=== PATIENT | female | born 1955 | race Caucasian/White ===

== ENCOUNTER 2019-03-19 09:45 | Inpatient (IN) | payer MEDICARE ==
[~2019-03-19] VITALS: Ht 175.3 cm; Wt 75.0 kg
[2019-03-19 09:48] VITALS: Ht 175.3 cm; Wt 75.0 kg
[2019-03-19] MEDS ORDERED: NORVASC10 MG PO (09:50)
[2019-03-19] MEDS ORDERED: TENORMIN25 MG PO (09:50)
[2019-03-19] MEDS ORDERED: VITAMIN D31000 UNIT PO (09:51)
[2019-03-19] MEDS ORDERED: ZYRTEC10 MG PO (09:51)
[2019-03-19] MEDS ORDERED: IBUPROFEN800 MG PO (09:52)
[2019-03-19] MEDS ORDERED: XOPENEX HFA15 GM INH (09:52)
[2019-03-19] MEDS ORDERED: CYCLOBENZAPRINE10 MG PO (09:52)
[2019-03-19] MEDS ORDERED: LIDODERM 5 %1 PATCH TRANSDERM (09:53)
[2019-03-19] MEDS ORDERED: OMEPRAZOLE20 M1 PO (09:53)
[2019-03-19] MEDS ORDERED: PRAVACHOL20 MG PO (09:53)
[2019-03-19] MEDS ORDERED: SUMATRIPTAN SUC25 MG PO (09:54)
[2019-03-19 10:06] LABS: BASOPHILS 0.1 % (0-2); EOSINOPHILS 0.1 % (0-7); HEMATOCRIT 39.7 % (36.0-48.0); HEMOGLOBIN 13.6 g/dL (12-16); IMMATURE GRANULOCYTES 0.2 % (0-5); LYMPHOCYTES 13.2 % (15-50); MCH 34.3 pg (26.0-34.0); MCHC 34.3 g/dL (31.0-37.0); MEAN PLATELET VOLUME 10.3 fL (7.4-10.4); MONOCYTES 7.4 % (2-11); PLATELET COUNT 251 10x3/uL (130-400); RBC 3.97 10x6/uL (4.00-5.40); RDW 13.4 % (11.5-14.5); WBC 10.8 10x3/uL (4.8-10.8)
[2019-03-19 10:18] LABS: APTT 30.5 SECONDS (22.8-39.4); INR 0.97 (0.85-1.17); PROTIME 12.9 SECONDS (11.6-15.0)
[2019-03-19 10:20] LABS: CALC OSMOLALITY 270 mosm/kg (275-300); CALCIUM 8.6 mg/dL (8.5-10.1); CARBON DIOXIDE 26.1 mmol/L (21.0-32.0); CHLORIDE - SERUM 102 mmol/L (98-107); CREATININE - SERUM 0.9 mg/dL (0.6-1.3); GLUCOSE 93 mg/dL (74-106); POTASSIUM - SERUM 4.1 mmol/L (3.5-5.1); SODIUM 136 mmol/L (136-145); UREA NITROGEN 10 mg/dL (7-18); eGFR NON AFRICAN AMERICAN 67 mL/min (90-120)
[2019-03-19 10:41] LABS: ALBUMIN 3.4 g/dL (3.4-5.0); ALKALINE PHOSPHATASE 108 U/L (46-116); ALT (SGPT) 38 U/L (10-68); BILIRUBIN - TOTAL 0.33 mg/dL (0.2-1.3); CKMB 1.8 U/L (0.0-3.6); CREATINE KINASE 34 UL (21-215); PRO BNP 148 pg/mL (0-125); PROTEIN - SERUM 7.6 g/dL (6.4-8.2); TROPONIN-I < 0.017 ng/mL (0.000-0.060)
--- NOTE | 2019-03-19 12:18 | NUR ---
PT HAVING A COUGHING SPELL SHE STATES, RESP. TX AT THIS TIME.
--- NOTE | 2019-03-19 12:56 | NUR ---
UP TO RESTROOM AT THIS TIME.
--- NOTE | 2019-03-19 13:00 | NUR ---
PT WALKED TO RESTROOM ON HER OWN WITHOUT ALERTING STAFF, HAS BECOME VERY SHORT OF BREATH WITH LABORED BREATHING ON RETURN TO ROOM. PLACED BACK ON O2 AND ENCOURAGED TO BREATHE SLOWLY IN AND OUT OF NOSE.
--- NOTE | 2019-03-19 13:05 | NUR ---
PT IS BREATHING MUCH EASIER NOW, O2 SAT 92 ON 3 L O2, INSTRUCTED TO ALERT STAFF FOR ASSISTANCE IN THE FUTURE.
[2019-03-19 13:29] VITALS: BP 131/79
--- NOTE | 2019-03-19 13:52 | NUR ---
RECEIVED PT FROM ER. PT IS AAO AND UP AD KARRIE. RR EVEN AND LABORED ON EXERTION ON 3L O2. PIV SALINE LOCKED. QUICKSTART, HISTORY, AND MED REQ COMPLETE. PT DENIES ANY NEEDS AT THIS TIME. WILL CTM.
[2019-03-19 20:00] VITALS: BP 124/82
--- NOTE | 2019-03-19 21:00 | NUR ---
PT RESTING IN BED WITH EYES CLOSED. NO SIGNS OR SYMPTOMS OF DISTRESS NOTED. RESPIRATIONS ARE ENEN AND UNLABORED. 3L NASAL CANULA. RESEVE lEFT ARM. LEFT AC IV. OT IS ALERT AND ORIENTED. UP AID KARRIE. CONTINENT OF BOWELL AND BLADDER. BOWELL SOUNDS ARE ACTIVE X4. PT STATES THAT LAST BOWELL MOVEMENT WAS 03/19/2019. ABDOMEN IS SOFT TO PALPATION. NO COMPLAINTS OF PAIN AT THIS TIME. MEDICATION GIVEN AND PT TOLERATED WELL. UP AID KARRIE. PT STATES THAT SHE GETS SHORT OF BREATH WHEN WALKING LONG DISTANCE. PT ENCOURAGE TO CALL FOR HELP WHEN GETTING IN AND OUT OF BED. BED IN LOWEST POSITION AND CALL LIGHT IS WITHIN REACH. WILL CONTINUE TO MONITOR.
--- NOTE | 2019-03-19 21:24 | NUR ---
PT LYING IN BED AWAKE ALERT AND ORIENTED. NO COMPLAINTS OF PAIN AT THIS TIME.
[2019-03-20] VITALS: BP 127/76
[2019-03-20 04:00] VITALS: BP 124/70
[2019-03-20 06:03] LABS: BASOPHILS 0 % (0-2); EOSINOPHILS 0 % (0-7); HEMATOCRIT 34.5 % (36.0-48.0); HEMOGLOBIN 11.6 g/dL (12-16); IMMATURE GRANULOCYTES 0.4 % (0-5); LYMPHOCYTES 8.2 % (15-50); MCH 33.4 pg (26.0-34.0); MCHC 33.6 g/dL (31.0-37.0); MCV 99.4 fL (80.0-100.0); MEAN PLATELET VOLUME 10.1 fL (7.4-10.4); MONOCYTES 1.4 % (2-11); PLATELET COUNT 231 10x3/uL (130-400); RBC 3.47 10x6/uL (4.00-5.40); RDW 13.5 % (11.5-14.5)
[2019-03-20 06:48] LABS: CALC OSMOLALITY 280 mosm/kg (275-300); CALCIUM 8.5 mg/dL (8.5-10.1); CARBON DIOXIDE 19.8 mmol/L (21.0-32.0); CHLORIDE - SERUM 106 mmol/L (98-107); CREATININE - SERUM 0.8 mg/dL (0.6-1.3); MAGNESIUM - SERUM 1.9 mg/dL (1.8-2.4); POTASSIUM - SERUM 3.5 mmol/L (3.5-5.1); PRO BNP 571 pg/mL (0-125); SODIUM 139 mmol/L (136-145); T4 THYROXIN - FREE 1.02 ng/dL (0.76-1.46); UREA NITROGEN 11 mg/dL (7-18); eGFR NON AFRICAN AMERICAN 77 mL/min (90-120)
[2019-03-20 06:50] LABS: GLUCOSE 163 mg/dL (74-106)
--- NOTE | 2019-03-20 07:08 | NUR ---
I have reviewed this patient and I concur with the Shift Assessment completed by the Licensed Practical Nurse today this shift.
--- NOTE | 2019-03-20 07:27 | NUR ---
PT AWAKE AND ORIENTED, LYING IN BED WATCHING TELIVISION. NO COMPLAINTS OR CONCERNS AT THIS TIME. NO FAMILY AT BEDSIDE. ALL QUESTIONS ANSWERED TO THE BEST OF MY ABILITY. CL IN REACH, SRX2.
[2019-03-20 08:53] VITALS: BP 127/67
[2019-03-20 09:49] LABS: % SATURATION 12 % (15-55); IRON 25 ug/dl (35-150); TOTAL IRON BIND CAPACITY 203 ug/dl (260-445); UNSAT IRON BIND CAPACITY 178 ug/dl (150-375)
[2019-03-20 12:09] VITALS: BP 126/75
--- NOTE | 2019-03-20 15:00 | NUR ---
I have reviewed this patient and I concur with the Shift Assessment completed by the Licensed Practical Nurse today this shift.
[2019-03-20 16:52] VITALS: BP 119/74
--- NOTE | 2019-03-20 17:18 | NUR ---
PT AWAKE AND ORIENTED, STATES SHE'S GLAD TO BE FEELING A LITTLE BETTER AND THE COUGH MEDICINE IS HELPING EXPONETIALLY. CL IN REACH, SRX2.
[2019-03-20 20:00] VITALS: BP 109/66
--- NOTE | 2019-03-20 20:10 | NUR ---
RECEIVED UP IN BED WITH EYES OPEN AND TV ON. STATED SHE HAD JUST TAKEN A SHOWER. ALERT AND ORIENTED X4. BECOMES SOB WITH EXCERTION. LUNG SOUNDS DIMINISHED. ABSX4. O2 AT 3.5 LITERS PER N/C. IV TO LEFT AC SL. DENIES ANY NEEDS AT THIS TIME.
[2019-03-21] VITALS (7 sets, daily range): BP systolic 110–134; BP diastolic 56–75
[2019-03-21 03:37] LABS: APPEARANCE CLEAR (CLEAR); BILIRUBIN NEGATIVE (NEGATIVE); COLOR YELLOW (YELLOW); GLUCOSE NEGATIVE (NEGATIVE); KETONE NEGATIVE (NEGATIVE); NITRITE NEGATIVE (NEGATIVE); PROTEIN NEGATIVE (NEGATIVE); UROBILINOGEN NORMAL (NORMAL)
[2019-03-21 06:48] LABS: BASOPHILS 0 % (0-2); EOSINOPHILS 0 % (0-7); HEMATOCRIT 31.7 % (36.0-48.0); HEMOGLOBIN 10.3 g/dL (12-16); IMMATURE GRANULOCYTES 0.6 % (0-5); MCH 32.4 pg (26.0-34.0); MCHC 32.5 g/dL (31.0-37.0); MCV 99.7 fL (80.0-100.0); MEAN PLATELET VOLUME 9.8 fL (7.4-10.4); MONOCYTES 2.4 % (2-11); PLATELET COUNT 239 10x3/uL (130-400); RBC 3.18 10x6/uL (4.00-5.40); RDW 13.3 % (11.5-14.5)
--- NOTE | 2019-03-21 07:15 | NUR ---
PT RESTING PEACEFULLY, LYING ON BACK IN BED. NO FAMILY PRESENT AT BEDSIDE. BREATHS EVEN/REGULAR UNLABORED, NOS IGNS OR SYMTPOMS OF ACUTE DISTRESS NOTED AT THIS TIME.
[2019-03-21 07:19] LABS: CALC OSMOLALITY 282 mosm/kg (275-300); CALCIUM 7.7 mg/dL (8.5-10.1); CHLORIDE - SERUM 110 mmol/L (98-107); CREATININE - SERUM 0.8 mg/dL (0.6-1.3); GLUCOSE 130 mg/dL (74-106); POTASSIUM - SERUM 3.4 mmol/L (3.5-5.1); SODIUM 141 mmol/L (136-145); UREA NITROGEN 13 mg/dL (7-18); eGFR NON AFRICAN AMERICAN 77 mL/min (90-120)
--- NOTE | 2019-03-21 09:46 | NUR ---
I have reviewed this patient and I concur with the Shift Assessment completed by the Licensed Practical Nurse today this shift.
--- NOTE | 2019-03-21 17:00 | NUR ---
PT AWAKE AND ORIENTED, LYING IN BED EATING SUPPER. NO CMPLAINTS OR CONCERNS, IN PLESANT MOOD. EXPECTING TO GO HOME IN THE MORNING. ALL QUESTIONS NASWERED TO THE BEST OF MY ABILITY. CL IN REACH, SRX2.
--- NOTE | 2019-03-21 18:07 | NUR ---
RESITED I/V TO RIGHT UPPER ARM 20G ONE STICK
--- NOTE | 2019-03-21 19:15 | NUR ---
RECEIVED UP IN BED WITH EYES OPEN AND TV ON. ALERT AND ORIENTED X4. IV TO LEFT UPPER ARM WITH NS AT 75CC/HR. DSG CDI WITH NO REDNESS OR EDEMA OBSERVED. DENIES ANY NEEDS AT THIS TIME.
[2019-03-22 04:39] VITALS: BP 128/70
[2019-03-22 05:29] LABS: BASOPHILS 0.1 % (0-2); EOSINOPHILS 0 % (0-7); HEMATOCRIT 33.9 % (36.0-48.0); HEMOGLOBIN 11.1 g/dL (12-16); IMMATURE GRANULOCYTES 0.8 % (0-5); LYMPHOCYTES 9.2 % (15-50); MCH 32.9 pg (26.0-34.0); MCHC 32.7 g/dL (31.0-37.0); MCV 100.6 fL (80.0-100.0); MEAN PLATELET VOLUME 9.7 fL (7.4-10.4); MONOCYTES 3.3 % (2-11); NEUTROPHILS 86.6 % (40-80); PLATELET COUNT 271 10x3/uL (130-400); RBC 3.37 10x6/uL (4.00-5.40); RDW 13.4 % (11.5-14.5); WBC 7.8 10x3/uL (4.8-10.8)
[2019-03-22 05:30] LABS: CALC OSMOLALITY 280 mosm/kg (275-300); CALCIUM 7.9 mg/dL (8.5-10.1); CARBON DIOXIDE 23.3 mmol/L (21.0-32.0); CHLORIDE - SERUM 108 mmol/L (98-107); CREATININE - SERUM 0.8 mg/dL (0.6-1.3); GLUCOSE 118 mg/dL (74-106); POTASSIUM - SERUM 3.6 mmol/L (3.5-5.1); SODIUM 140 mmol/L (136-145); UREA NITROGEN 15 mg/dL (7-18); eGFR NON AFRICAN AMERICAN 77 mL/min (90-120)
--- NOTE | 2019-03-22 08:40 | NUR ---
REPORT RECIEVED. PT SITTING UP IN BED. RR EVEN AND UNLABORED. SHE HAS A L UPPER ARM PIV INFUSING NS @ 75. SHE IS A RESERVE L ARM. BED LOCKED AND IN LOWEST POSITION, CALL LIGHT WITHIN REACH. WILL CTM
[2019-03-22 08:43] VITALS: BP 136/85
[2019-03-22 12:29] VITALS: BP 133/78
--- NOTE | 2019-03-22 14:40 | NUR ---
PATIENT NON AMBULATING ROOM AIR SP02 88%. PATIENT AMBULATED IN HALLWAY WITH RT, ROOM AIR AMBULATING SP02 86%. RT PLACED 1L NC ON PATIENT, AMBULATING SP02 ON 1L WAS 88%. 02 INCREASED TO 2LNC AND AMBULATING SP02 91%.
[2019-03-22] MEDS ORDERED: PREDNISONE10 MG PO (15:17)
[2019-03-22] MEDS ORDERED: LEVOFLOXACIN500 MG PO (15:17)
--- NOTE | 2019-03-22 15:54 | NUR ---
I have reviewed this patient and I concur with the Shift Assessment completed by the Licensed Practical Nurse today this shift.
--- NOTE | 2019-03-22 16:22 | MORECARE ---
CASE MANAGEMENT DISCHARGE SUMMARY PATIENT: ROSALIA NORIEGA UNIT: [id number] ADM DATE: 03/19/19 AGE: 63 : 55 SEX: F ROOM/BED: D.2137 AUTHOR: JAYA ALEXANDER PHYSICIAN: REFERRING PHYSICIAN: REBECA DE GUZMAN MD DATE OF SERVICE: 03/22/19 Discharge Plan Patient Name: ROSALIA NORIEGA [facility] [facility] 1955 Planned Disposition: Home Anticipated Discharge Date: 03/22/19 Discharge Date: Expected LOS: 3 Initial Reviewer: [email or web address] Initial Review Date: 03/22/2019 Generated: 03/22/19 5:21 pm External Providers External Provider: OTHER-OTHER Next Contact Date: 03/22/2019 Service Request Date: Service Type: Resolution: Reviewer: Comments: Coverage Notice Reviewer: [email or web address] Atkinson Notice Issued Date-Time: 03/22/2019 14:15 Notice Type: Patient Choice Letter Notice Delivered To: Patient Relationship to Patient: Stone Setter Metal Optical Frames Name: Delivery Method: HAND - Hand Delivered Jennifer Days: Prior Verbal Notification: Recipient Understood Notice: Yes Recipient Signature: Yes Med Rec Note Co-signed by Attending: Coverage Notice Comment: [facility] OR [facility] EQUIPMENT PROVIDER Reviewer: [id number] Atkinson Notice Issued Date-Time: 03/22/2019 14:15 Notice Type: IM Discharge Notice Notice Delivered To: Patient Relationship to Patient: Stone Setter [employer] Optical Frames Name: Delivery Method: HAND - Hand Delivered Jennifer Days: Prior Verbal Notification: Recipient Understood Notice: Yes Recipient Signature: Yes Med Rec Note Co-signed by Attending: Coverage Notice Comment: Patient Name: ROSALIA NORIEGA Page [id number] at 1622 All edits/amendments must be made on the electronic document DICTATION DATE: 03/22/191620 FLORICULTURE TEACHER: ANJANA 03/22/191620 RPT#: [id number] DC DATE: STATUS: ADM IN [facility] [address] [place] [address] END OF REPORT
--- NOTE | 2019-03-22 16:30 | MORECARE ---
CASE MANAGEMENT DISCHARGE SUMMARY PATIENT: ROSALIA NORIEGA UNIT: [id number] ADM DATE: 03/19/19 AGE: 63 : 55 SEX: F ROOM/BED: D.6421 AUTHOR: BENJAMIN,DOC PHYSICIAN: REFERRING PHYSICIAN: REBECA DE GUZMAN MD DATE OF SERVICE: 03/22/19 Discharge Plan Patient Name: ROSALIA NORIEGA Facility: [facility]:[place] : 1955 Planned Disposition: Home Anticipated Discharge Date: 03/22/19 Discharge Date: Expected LOS: 3 Initial Reviewer: [email or web address] Initial Review Date: 03/22/2019 Generated: 03/22/19 5:29 pm DCPIA - Discharge Planning Initial Assessment Updated by [email or web address]: Taj Atkinson on 03/22/19 4:23 pm * Is the patient Alert and Oriented? Yes * How many steps to enter\exit or inside your home? * PCP DR. CAPPS, [facility] * Pharmacy [facility] [address] * Preadmission Environment Home Alone * ADLs Independent * Equipment Cane Nebulizer Oxygen * Other Equipment [facility] * List name and contact numbers for known caregivers / representatives who currently or will assist patient after discharge: KATHY MILLANON, FRIEND, * Verbal permission to speak to the caregivers and representatives has been obtained from the patient. N/A * Community resources currently utilized None * Please name any agencies selected above. NONE * Additional services required to return to the preadmission environment? No * Can the patient safely return to the preadmission environment? Yes * Has this patient been hospitalized within the prior 30 days at any hospital? No Coverage Notice Reviewer: [id number] Tabitha Atkinson Notice Issued Date-Time: 03/22/2019 14:15 Notice Type: Patient Choice Letter Notice Delivered To: Patient Relationship to Patient: Uc Architect Name: Delivery Method: HAND - Hand Delivered Jennifer Days: Prior Verbal Notification: Recipient Understood Notice: Yes Recipient Signature: Yes Med Rec Note Co-signed by Attending: Coverage Notice Comment: [facility] OR ANY MEDICAL EQUIPMENT PROVIDER Reviewer: [id number] Tabitha Atkinson Notice Issued Date-Time: 03/22/2019 14:15 Notice Type: IM Discharge Notice Notice Delivered To: Patient Relationship to Patient: Uc Architect Name: Delivery Method: HAND - Hand Delivered Jennifer Days: Prior Verbal Notification: Recipient Understood Notice: Yes Recipient Signature: Yes Med Rec Note Co-signed by Attending: Coverage Notice Comment: Last DP export: 03/22/19 3:22 p Patient Name: ROSALIA NORIEGA Page [phone] at 1630 All edits/amendments must be made on the electronic document DICTATION DATE: 03/22/191628 MAIL TELLER: ANJANA 03/22/191628 RPT#: [id number] DC DATE: STATUS: ADM IN [facility] [address] [place] [address] END OF REPORT
--- NOTE | 2019-03-22 16:34 | NUR ---
DC PAPERWORK GONE OVER AND SIGNED WITH PT. ALL QUESTIONS ANSWERED. PIV REMOVED,CATH TIP FULLY INTACT. ALL VALUBLES REMOVED FROM ROOM. PT TAKIN DOWNSTAIRS VIA WHEELCHAIR.
--- NOTE | 2019-03-22 16:38 | MORECARE ---
CASE MANAGEMENT DISCHARGE SUMMARY PATIENT: ROSALIA NORIEGA UNIT: [id number] ADM DATE: 03/19/19 AGE: 63 : 55 SEX: F ROOM/BED: D.1700 AUTHOR: BENJAMIN,DOC PHYSICIAN: REFERRING PHYSICIAN: REBECA DE GUZMAN MD DATE OF SERVICE: 03/22/19 Discharge Plan Patient Name: ROSALIA NORIEGA Facility[facility]:[place] : 1955 Planned Disposition: Home Anticipated Discharge Date: 03/22/19 Discharge Date: 03/22/2019 Expected LOS: 3 Initial Reviewer: [id number] Initial Review Date: 03/22/2019 Generated: 03/22/19 5:37 pm Comments DCP- Discharge Planning Updated by [email or web address]: Taj Atkinson on 03/22/19 3:[address] Patient Name: ROSALIA NORIEGA Admission Status: ER Accout number: [id number] Admission Date: 03-19-2019 : 1955 Admission Diagnosis: Attending: REBECA DE GUZMAN Current LOS: 3 Anticipated DC Date: 03-22-2019 Planned Disposition: Home Primary Insurance: MEDICARE A & B Discharge Planning Comments: CM MET WITH PT IN ROOM TO DISCUSS DISCHARGE PLANNING AND NEEDS. PT REPORTS LIVING AT HOME INDEPENDENTLY AND ALONE. PT HAS CANE, NEBULIZER AND HOME OXYGEN FROM [facility]. PT HAS NO OUTSIDE SERVICES ASSISTING IN THE HOME. CM DISCUSSED AVAILABILITY OF HOME HEALTH, REHAB SERVICES AND MEDICAL EQUIPMENT. PT DENIES DISCHARGE NEEDS, REPORTS HER FRIEND WILL PICK HER UP FOR DISCHARGE HOME. IMPORTANT MESSAGE FROM MEDICARE PROVIDED AND EXPLAINED. PT STATES IF SHE NEEDS OXYGEN, GET IT FROM [facility] OR ANY COMPANY THAT ACCEPTS MEDICARE. CHOICE SIGNED. CM RECEIVED OXYGEN TESTING, PT 88% ON ROOM AIR. CM CALLED [employer], , SPOKE TO NAHUN WHO INFORMED CM THAT THEY ARE NOT ABLE TO BILL MEDICARE PT HAS HOME OXYGEN FROM ANOTHER PROVIDER THROUGH [facility]. CM CALLED [facility], THEY ARE CLOSED DUE TO HOLIDAY. CM FAXED OXYGEN INFORMATION WELL DISCHARGE SUMMARY TO [facility] AT [phone]. CM CALLED [facility] AT [phone], SPOKE TO ROSALES WHO INFORMED CM THAT SHE DID NOT EVEN KNOW WHO TO CALL. ROSALES WILL TRY TO GET A [facility] GLAZE SPRAYER TO CALL CM. CM RECEIVED CALL FROM AMANDA JENKINS, GLAZE SPRAYER FOR [facility] WHO INFORMED CM THAT THIS SHOULD HAVE BEEN ARRANGED DAYS AHEAD OF TIME AND TODAY IS A HOLIDAY AND HE DOES NOT KNOW WHO SETS UP OXYGEN FOR [facility]. AMANDA WILL ATTEMPT TO FIND OUT AND CALL CM SHORTLY. CM RECEIVED CALL FROM AMANDA WHO PROVIDED NUMBER TO [facility] [place], ANNE SIMON: [phone]. CM CALLED ANNE WHO STATED THAT IT CANNOT BE DONE TODAY [facility], THE PROVIDER FOR [facility], DOES NOT DELIVER PAST 3PM, IT IS IN THEIR CONTRACT. ANNE STATES HE WOULD HAVE TO REVIEW THE PAPERWORK TO APPROVE IT AND IT WOULD BE TOMORROW AT THE EARLIEST TO GET PORTABLE TO GET PT HOME. CM PROVIDED PT INFORMATION TO ANNE. ANNE STATES THAT HE IS SURE THE HOSPITAL HAS OXYGEN TO LOAN TO PT TO GET HER HOME AND SHE CAN STAY HOME UNTIL THIS IS TAKEN CARE OF BY THE [facility] TOMORROW. CM SPOKE TO PHYSICAL THERAPY SUPERVISOR WHO DIRECTED CM TO [employer]. CM CALLED [facility] [employer] [facility] AND DISCUSSED ISSUE. PORT[facility] CHECKED INTO THE MATTER AND CALLED CM TO INFORM THAT THE HOSPITAL DOES NOT LOAN OXYGEN BOTTLES. CM NOTIFIED PT WHO REFUSED TO STAY. PT PROVIDED CM WITH WRITTEN STATEMENT " RELEASING THE HOSPITAL FROM ANY REPERCUSSIONS BY MY LEAVING." PT'S FRIEND HERE TO TRANSPORT PT HOME, PT STATES CM HAS TWO MINUTES TO GET HER DISCHARGE PAPERS OR SHE IS LEAVING WITHOUT THEM. CM NOTIFED DISPLAY MANAGER NURSE. Car Lot Attendant: Taj Atkinson DCPIA - Discharge Planning Initial Assessment Updated by [id number]: Taj Atkinson on 03/22/19 4:23 pm * Is the patient Alert and Oriented? Yes * How many steps to enter\\exit or inside your home? * PCP DR. CAPPS, [facility] * Pharmacy [facility] [address] [place] [address] * Preadmission Environment Home Alone * ADLs Independent * Equipment Cane Nebulizer Oxygen * Other Equipment [facility] * List name and contact numbers for known caregivers / representatives who currently or will assist patient after discharge: KATHY MEDINA, FRIEND, * Verbal permission to speak to the caregivers and representatives has been obtained from the patient. N/A * Community resources currently utilized None * Please name any agencies selected above. NONE * Additional services required to return to the preadmission environment? No * Can the patient safely return to the preadmission environment? Yes * Has this patient been hospitalized within the prior 30 days at any hospital? No Coverage Notice Reviewer: [id number] Tabitha Atkinson Notice Issued Date-Time: 03/22/2019 14:15 Notice Type: Patient Choice Letter Notice Delivered To: Patient Relationship to Patient: Cottage Master Name: Delivery Method: HAND - Hand Delivered Jennifer Days: Prior Verbal Notification: Recipient Understood Notice: Yes Recipient Signature: Yes Med Rec Note Co-signed by Attending: Coverage Notice Comment: [facility] OR [facility] MEDICAL EQUIPMENT PROVIDER Reviewer: [email or web address] Tabitha Atkinson Notice Issued Date-Time: 03/22/2019 14:15 Notice Type: IM Discharge Notice Notice Delivered To: Patient Relationship to Patient: Cottage Master Name: Delivery Method: HAND - Hand Delivered Jennifer Days: Prior Verbal Notification: Recipient Understood Notice: Yes Recipient Signature: Yes Med Rec Note Co-signed by Attending: Coverage Notice Comment: Last DP export: 03/22/19 3:30 p Patient Name: ROSALIA NORIEGA Page [phone] at 1638 All edits/amendments must be made on the electronic document DICTATION DATE: 03/22/191636 MOTION GRAPHICS DESIGNER: ANJANA 03/22/19 163 RPT#: [id number] DC DATE:03/22/19 STATUS: DIS IN [facility] [address] [place] [address] END OF REPORT
[2019-03-23 12:09] LABS: THYROGLOBULIN ANTIBODY QNS IU/mL (()); THYROID PEROXIDASE ABS 19 IU/mL (0-34)
== END 2019-03-22 16:36 | disposition home or self-care (01) | DRG 190 ==
LOC: D.ER 09:45 → D.M2 12:35
PROVIDERS: Emergency Medicine; ADMIT Internal Medicine Nephrology; ATTEND Internal Medicine Nephrology
DX: J44.0 Chronic obstructive pulmonary disease with (acute) lower respiratory infection (principal); J96.01 Acute respiratory failure with hypoxia; J20.9 Acute bronchitis, unspecified; J44.1 Chronic obstructive pulmonary disease with (acute) exacerbation; E03.9 Hypothyroidism, unspecified; I10 Essential (primary) hypertension; E78.5 Hyperlipidemia, unspecified; K21.9 Gastro-esophageal reflux disease without esophagitis; F41.8 Other specified anxiety disorders; F17.210 Nicotine dependence, cigarettes, uncomplicated; D64.9 Anemia, unspecified; Z85.3 Personal history of malignant neoplasm of breast; Z85.43 Personal history of malignant neoplasm of ovary

== ENCOUNTER 2019-08-14 09:07 | Emergency (ER) | payer MEDICARE ==
[~2019-08-14] VITALS: Ht 175.3 cm; Wt 76.4 kg
[~2019-08-14 09:07] MED LIST: CYCLOBENZAPRINE10 MG PO; IBUPROFEN800 MG PO; LEVOFLOXACIN500 MG PO; LIDODERM 5 %1 PATCH TRANSDERM; NORVASC10 MG PO; OMEPRAZOLE20 M1 PO; PRAVACHOL20 MG PO; PREDNISONE10 MG PO; SUMATRIPTAN SUC25 MG PO; TENORMIN25 MG PO; VITAMIN D31000 UNIT PO; XOPENEX HFA15 GM INH; ZYRTEC10 MG PO
[2019-08-14 09:17] VITALS: Ht 175.3 cm; Wt 76.4 kg
[2019-08-14 09:53] LABS: BASOPHILS 0.5 % (0-2); EOSINOPHILS 1.3 % (0-7); HEMATOCRIT 41.8 % (36.0-48.0); HEMOGLOBIN 13.9 g/dL (12-16); IMMATURE GRANULOCYTES 0.2 % (0-5); LYMPHOCYTES 35.3 % (15-50); MCH 33.7 pg (26.0-34.0); MCHC 33.3 g/dL (31.0-37.0); MCV 101.5 fL (80.0-100.0); MEAN PLATELET VOLUME 9.7 fL (7.4-10.4); MONOCYTES 6.3 % (2-11); NEUTROPHILS 56.4 % (40-80); RBC 4.12 10x6/uL (4.00-5.40); RDW 14.6 % (11.5-14.5)
[2019-08-14 10:02] LABS: CALC OSMOLALITY 269 mosm/kg (275-300); CALCIUM 8.2 mg/dL (8.5-10.1); CARBON DIOXIDE 25.5 mmol/L (21.0-32.0); CHLORIDE - SERUM 101 mmol/L (98-107); CREATININE - SERUM 1.1 mg/dL (0.6-1.3); GLUCOSE 98 mg/dL (74-106); POTASSIUM - SERUM 3.5 mmol/L (3.5-5.1); SODIUM 135 mmol/L (136-145); UREA NITROGEN 12 mg/dL (7-18); eGFR NON AFRICAN AMERICAN 53 mL/min (90-120)
[2019-08-14 10:04] LABS: PLATELET COUNT 211 10x3/uL (130-400)
[2019-08-14 10:10] LABS: APTT 29.6 SECONDS (22.8-39.4); INR 0.95 (0.85-1.17); PROTIME 12.6 SECONDS (11.6-15.0)
[2019-08-14 10:11] LABS: D-DIMER-QUANTITATIVE 1.37 ug/mLFEU (0.20-0.54)
[2019-08-14 10:18] LABS: ALBUMIN 3.7 g/dL (3.4-5.0); ALKALINE PHOSPHATASE 107 U/L (30-120); ALT (SGPT) 77 U/L (10-68); BILIRUBIN - TOTAL 0.43 mg/dL (0.2-1.3); CKMB 1.8 U/L (0.0-3.6); CREATINE KINASE 66 UL (21-215); PRO BNP 66 pg/mL (0-125); PROTEIN - SERUM 7.1 g/dL (6.4-8.2)
[2019-08-14 10:23] LABS: TROPONIN-I < 0.017 ng/mL (0.000-0.060)
[2019-08-14] MEDS ORDERED: KEFLEX500 MG PO (12:38)
[2019-08-14 12:49] VITALS: BP 120/78
== END 2019-08-14 12:50 | disposition home or self-care (01) ==
LOC: D.ER 09:07
PROVIDERS: Family Medicine
DX: I87.8 Other specified disorders of veins (principal); L03.119 Cellulitis of unspecified part of limb; I11.0 Hypertensive heart disease with heart failure; J44.9 Chronic obstructive pulmonary disease, unspecified; K21.9 Gastro-esophageal reflux disease without esophagitis; Z72.0 Tobacco use; I50.9 Heart failure, unspecified

== ENCOUNTER 2019-12-17 | Emergency (ER) | payer MEDICARE ==
[~2019-12-17] VITALS: Ht 175.3 cm; Wt 74.5 kg
[~2019-12-17] MED LIST changes: +KEFLEX500 MG PO
[2019-12-17 00:06] VITALS: Ht 175.3 cm; Wt 74.5 kg
[2019-12-17 00:46] LABS: BASOPHILS 0.3 % (0-2); EOSINOPHILS 1.2 % (0-7); HEMOGLOBIN 12.6 g/dL (12-16); IMMATURE GRANULOCYTES 0.1 % (0-5); LYMPHOCYTES 12.2 % (15-50); MCH 35.8 pg (26.0-34.0); MCHC 34.1 g/dL (31.0-37.0); MCV 105.1 fL (80.0-100.0); MEAN PLATELET VOLUME 9.9 fL (7.4-10.4); MONOCYTES 5.2 % (2-11); PLATELET COUNT 190 10x3/uL (130-400); RBC 3.52 10x6/uL (4.00-5.40); RDW 14.5 % (11.5-14.5); WBC 7.3 10x3/uL (4.8-10.8)
[2019-12-17 00:56] LABS: PROTIME 13.2 SECONDS (11.6-15.0)
[2019-12-17 00:57] LABS: APTT 30.1 SECONDS (22.8-39.4)
[2019-12-17 01:01] LABS: ALBUMIN 3.1 g/dL (3.4-5.0); ANION GAP 14.1 mmol/L (8-16); BILIRUBIN - TOTAL 0.83 mg/dL (0.2-1.3); CALCIUM 8.1 mg/dL (8.5-10.1); CARBON DIOXIDE 27.8 mmol/L (21.0-32.0); CREATININE - SERUM 0.9 mg/dL (0.6-1.3); PROTEIN - SERUM 7.1 g/dL (6.4-8.2)
[2019-12-17 01:07] LABS: POTASSIUM - SERUM 2.9 mmol/L (3.5-5.1)
[2019-12-17] MEDS ORDERED: AMOXICILLIN500 M1 PO (01:38)
[2019-12-17 03:10] VITALS: BP 144/88
== END 2019-12-17 03:10 | disposition home or self-care (01) ==
LOC: D.ER
PROVIDERS: Family Medicine
DX: R04.0 Epistaxis (principal); E87.6 Hypokalemia

== ENCOUNTER 2019-12-20 08:44 | Emergency (ER) | payer MEDICARE ==
[~2019-12-20] VITALS: Ht 175.3 cm; Wt 74.5 kg
[~2019-12-20 08:44] MED LIST changes: +AMOXICILLIN500 M1 PO
[2019-12-20 08:49] VITALS: Ht 175.3 cm; Wt 74.5 kg
[2019-12-20 09:25] LABS: BASOPHILS 0.1 % (0-2); EOSINOPHILS 0.3 % (0-7); HEMATOCRIT 35.8 % (36.0-48.0); HEMOGLOBIN 12.4 g/dL (12-16); IMMATURE GRANULOCYTES 0.1 % (0-5); LYMPHOCYTES 13.2 % (15-50); MCH 35.9 pg (26.0-34.0); MCHC 34.6 g/dL (31.0-37.0); MCV 103.8 fL (80.0-100.0); MEAN PLATELET VOLUME 10.2 fL (7.4-10.4); MONOCYTES 7.8 % (2-11); NEUTROPHILS 78.5 % (40-80); PLATELET COUNT 202 10x3/uL (130-400); RBC 3.45 10x6/uL (4.00-5.40); RDW 14.6 % (11.5-14.5); WBC 7.5 10x3/uL (4.8-10.8)
[2019-12-20 10:16] VITALS: BP 118/65
== END 2019-12-20 09:50 | disposition home or self-care (01) ==
LOC: D.ER 08:44
PROVIDERS: Emergency Medicine
DX: R04.0 Epistaxis (principal); R00.0 Tachycardia, unspecified; I10 Essential (primary) hypertension; J44.9 Chronic obstructive pulmonary disease, unspecified

== ENCOUNTER 2020-06-15 10:28 | Inpatient (IN) | payer MEDICARE ==
[~2020-06-15] VITALS: Ht 175.3 cm; Wt 68.5 kg
[2020-06-15 11:00] VITALS: BP 118/76
[2020-06-15 11:18] LABS: CALC OSMOLALITY 264 mosm/kg (275-300); CALCIUM 7.4 mg/dL (8.5-10.1); CARBON DIOXIDE 22.6 mmol/L (21.0-32.0); CHLORIDE - SERUM 97 mmol/L (98-107); CREATININE - SERUM 1.6 mg/dL (0.6-1.3); GLUCOSE 107 mg/dL (74-106); POTASSIUM - SERUM 3.5 mmol/L (3.5-5.1); SODIUM 132 mmol/L (136-145); UREA NITROGEN 13 mg/dL (7-18); eGFR NON AFRICAN AMERICAN 34 mL/min (90-120)
[2020-06-15 11:19] LABS: APTT 30.4 SECONDS (22.8-39.4); INR 1.03 (0.85-1.17); PROTIME 12.5 SECONDS (11.6-15.0)
[2020-06-15 11:35] LABS: ALBUMIN 3.1 g/dL (3.4-5.0); ALKALINE PHOSPHATASE 159 U/L (30-120); ALT (SGPT) 23 U/L (10-68); BASOPHILS 0.4 % (0-2); BILIRUBIN - TOTAL 0.65 mg/dL (0.2-1.3); CKMB 0.6 U/L (0.0-3.6); CREATINE KINASE 17 UL (21-215); EOSINOPHILS 2.8 % (0-7); HEMOGLOBIN 9.8 g/dL (12-16); IMMATURE GRANULOCYTES 0.1 % (0-5); LYMPHOCYTE ABS# 1.33 10x3/uL (1.18-3.74); LYMPHOCYTES 19.7 % (15-50); MCH 34.8 pg (26.0-34.0); MCHC 33.8 g/dL (31.0-37.0); MCV 102.8 fL (80.0-100.0); MEAN PLATELET VOLUME 11.7 fL (7.4-10.4); MONOCYTES 4.6 % (2-11); NEUTROPHIL ABS# 4.87 10x3/uL (1.56-6.13); NEUTROPHILS 72.4 % (40-80); PRO BNP 170 pg/mL (0-125); PROTEIN - SERUM 6.4 g/dL (6.4-8.2); RBC 2.82 10x6/uL (4.00-5.40); RDW 15.8 % (11.5-14.5); WBC 6.7 10x3/uL (4.8-10.8)
[2020-06-15 11:48] LABS: PLATELET COUNT 108 10x3/uL (130-400); TROPONIN-I < 0.017 ng/mL (0.000-0.060)
[2020-06-15 11:52] LABS: MAGNESIUM - SERUM 0.7 mg/dL (1.8-2.4)
--- NOTE | 2020-06-15 11:52 | NUR ---
CRITICAL LAB: MAGNESIUM 0.7 FRANCISCO BENITEZ AND MARCELINA, PRIMARY RN NOTIFIED
[2020-06-15 12:56] LABS: % SATURATION 19 % (15-55); IRON 35 ug/dl (35-150); TOTAL IRON BIND CAPACITY 184 ug/dl (260-445); UNSAT IRON BIND CAPACITY 149 ug/dl (150-375)
[2020-06-15 15:24] VITALS: BP 134/71
--- NOTE | 2020-06-15 17:10 | NUR ---
PT ARRIVES TO ROOM VIA STRETCHER ESCORTED BY ER STAFF. PT IS AAO X 4 AND ANSWERS ALL QUESTIONS APPROPRIATELY. PT DENIES PRESENCE OF PAIN/N/V/DYSPNEA/SOB AT THIS TIME. PT STATES THAT SHE DOES WEAR 3L O2 @ HOME AND REQUESTS TO BE PLACED ON O2. NC GIVEN AND PT PLACED ON 3L O2. PIV TO RIGHT AC SL FLUSHES WITHOUT DIFFICULTY. BRETT ALARM IS PLACED. INCENTIVE SPIROMETER AT BEDSIDE EDUCATION GIVEN. PT VERBALIZES UNDERSTANDING AND DENIES FURTHER QUESTIONS/CONERNS. PT REQUESTS TO STAY IN STREET CLOTHES AT THIS TIME. TANA MENA RN TO COMPLETE ADMISSION REQUIREMENTS. BED IS INT HE LOWEST POSITION. CALL LIGHT AND BEDSIDE TABLE ARE WITHIN REACH. SIDE RAILS X 2. PT DENIES FURTHER NEEDS. WILL CONT TO MONITOR.
--- NOTE | 2020-06-15 17:13 | NUR ---
NS INFUSION STOPPED AT 1630
[2020-06-15 17:23] VITALS: BP 167/93
[2020-06-15 17:27] VITALS: BP 167/93; BMI 22.3
--- NOTE | 2020-06-15 17:29 | NUR ---
ZORAN DOOR FRAME BUILDER NOTIFIED OF NEED FOR DIRECTOR MEDICAL SCIENCE AND FOR PT TO REMAIN ON TELE OR BE TX TO ICU.
[2020-06-15 18:16] LABS: HEMATOCRIT 25.5 % (36.0-48.0); HEMOGLOBIN 8.7 g/dL (12-16)
[2020-06-15 18:16] LABS: BILIRUBIN NEGATIVE (NEGATIVE); KETONE NEGATIVE (NEGATIVE); NITRITE NEGATIVE (NEGATIVE); UROBILINOGEN NORMAL mg/dL (< 2)
[2020-06-15 18:17] LABS: BACTERIA MANY HPF (NONE SEEN); SQUAMOUS EPITHELIAL 1 HPF (0-4)
--- NOTE | 2020-06-15 20:00 | NUR ---
ALERT RESTING IN BED DENIES PAIN OR NEEDS AT THIS TIME, DENIES ANY SIGN OF ACTIVE BLEEDING, SEE SHIFT ASSESSMENT, CALL LIGHT IN REACH , FALL PRECAUTIONS IN PLACE
[2020-06-15 21:48] VITALS: BP 115/68
[2020-06-15 23:17] LABS: HEMATOCRIT 23.5 % (36.0-48.0)
[2020-06-16 04:00] VITALS: BP 108/64
--- NOTE | 2020-06-16 06:22 | NUR ---
PT REFUSES TO SIGN CONSENTS FOR EGD, STATES TOLD DR WAS NOT GOING TO DO ANY SCOPES
[2020-06-16 07:00] LABS: INR 1.13 (0.85-1.17); PROTIME 13.4 SECONDS (11.6-15.0)
[2020-06-16 07:05] LABS: ANION GAP 12.3 mmol/L (8-16); BILIRUBIN - TOTAL 0.44 mg/dL (0.2-1.3); CARBON DIOXIDE 22.8 mmol/L (21.0-32.0); MAGNESIUM - SERUM 1.8 mg/dL (1.8-2.4); POTASSIUM - SERUM 3.1 mmol/L (3.5-5.1); PROTEIN - SERUM 5.1 g/dL (6.4-8.2)
[2020-06-16 07:16] LABS: BASOPHILS 0 % (0-2); EOSINOPHILS 4.1 % (0-7); HEMATOCRIT 24.3 % (36.0-48.0); HEMOGLOBIN 8.1 g/dL (12-16); LYMPHOCYTE ABS# 0.92 10x3/uL (1.18-3.74); LYMPHOCYTES 29.2 % (15-50); MCH 34.2 pg (26.0-34.0); MCHC 33.3 g/dL (31.0-37.0); MCV 102.5 fL (80.0-100.0); MEAN PLATELET VOLUME 11.3 fL (7.4-10.4); NEUTROPHIL ABS# 1.88 10x3/uL (1.56-6.13); NEUTROPHILS 59.7 % (40-80); PLATELET COUNT 89 10x3/uL (130-400); RBC 2.37 10x6/uL (4.00-5.40); RDW 15.8 % (11.5-14.5)
[2020-06-16 07:31] LABS: WBC 3.2 10x3/uL (4.8-10.8)
[2020-06-16 07:32] LABS: ALBUMIN 2.3 g/dL (3.4-5.0); CREATININE - SERUM 1.1 mg/dL (0.6-1.3)
[2020-06-16 07:34] LABS: CALCIUM 6.9 mg/dL (8.5-10.1)
--- NOTE | 2020-06-16 08:00 | NUR ---
PATIENT IN BED WITH IV INTACT. NO COMPLAINTS OR SIGNS OF DISTRESS. STATING SHE FEELS BETTER THAN SHE DID AND WANTS TO EAT REGULAR FOOD. EXPLAINED I WOULD SPEAK TO CHANNEL SALES MANAGER WHEN SHE CAME UP HERE. VERBALIZED UNDERSTANDING. CALL LIGHT WITHIN REACH.
[2020-06-16 08:14] VITALS: BP 123/65
--- NOTE | 2020-06-16 09:45 | NUR ---
PATIENT TOLERATED REGULAR DIET WITH NO PROBLEMS AT THIS TIME. NO COMPLAINTS. CALL LIGHT WITHIN REACH.
[2020-06-16 13:00] VITALS: BP 135/78
--- NOTE | 2020-06-16 13:00 | NUR ---
REMOVED IV DUE TO LEAKING WITH CATH TIP INTACT. WANTS TO LEAVE OUT BECAUSE SHE IS TO BE DC'D. WILL CONTINUE TO MONITOR. CALL LIGHT WITHIN REACH.
[2020-06-16] MEDS ORDERED: MAG-OX 400 MG400 MG PO (14:32)
--- NOTE | 2020-06-16 16:30 | NUR ---
PATIENT RECIEVED DC INSTRUCTIONS. VERBALIZED UNDERSTANDING. AMBULATED WITH PT WITH CANE. NO DIZZINESS. SOB SATS 95% ON RA AFTERWARDS. DOES WEAR O2 AT HOME. EXPLAINED TO TELEVISION ENGINEER MEDS AT [facility] ORDERED. VERBALIZED UNDERSTANDING. ALSO EXPLAINED TO TAKE POTASSIUM TABLETS WHEN SHE GETS HOME BC SHE STATED SHE WAS NOT ABLE TO SWALLOW ALL OF THE ONES I GAVE HER. WAITING ON TRANSPORTATION AT THIS TIME. CALL LIGHT WITHIN REACH.
[2020-06-16 16:59] VITALS: Ht 175.3 cm; Wt 68.5 kg
== END 2020-06-16 17:07 | disposition home or self-care (01) | DRG 378 ==
LOC: D.ER 10:28 → D.MS 14:33
PROVIDERS: Family Medicine; ADMIT Family Medicine; ATTEND Family Medicine
DX: K57.91 Diverticulosis of intestine, part unspecified, without perforation or abscess with bleeding (principal); E87.1 Hypo-osmolality and hyponatremia; N17.9 Acute kidney failure, unspecified; M48.54XA Collapsed vertebra, not elsewhere classified, thoracic region, initial encounter for fracture; E83.42 Hypomagnesemia; D53.9 Nutritional anemia, unspecified; K76.0 Fatty (change of) liver, not elsewhere classified; I10 Essential (primary) hypertension; J44.9 Chronic obstructive pulmonary disease, unspecified; K21.9 Gastro-esophageal reflux disease without esophagitis; E78.5 Hyperlipidemia, unspecified; E03.9 Hypothyroidism, unspecified; I25.10 Atherosclerotic heart disease of native coronary artery without angina pectoris; R19.5 Other fecal abnormalities; Z91.19 Patient's noncompliance with other medical treatment and regimen; Z85.43 Personal history of malignant neoplasm of ovary; Z85.3 Personal history of malignant neoplasm of breast